=== PATIENT | male | born 1980 | race Two or more races ===

== ENCOUNTER 2022-07-06 13:48 | Emergency (ER) | payer MEDICAID ==
[~2022-07-06] VITALS: Ht 175.3 cm; Wt 115.5 kg
[2022-07-06 13:59] VITALS: BP 125/86
[2022-07-06] MEDS ORDERED: ondansetron/PF 4mg/2ml inj IM ONE (15:45)
[2022-07-06] MEDS ORDERED: ketorolac trometh. 30mg/ml inj. IM ONE (15:45)
[2022-07-06 16:30] LABS: ALANINE AMINOTRANSFERASE 29 U/L (12-78); ALBUMIN 4.6 G/DL (3.4-5.0); ALBUMIN/GLOBULIN RATIO 1.4 (1.1-1.5); ALKALINE PHOSPHATASE 62 IU/L (46-116); ANION GAP 7 (8-16); ASPARTATE AMINO TRANSFERASE 18 U/L (10-37); BILIRUBIN,TOTAL 0.5 MG/DL (0.1-1.0); BLOOD UREA NITROGEN 19 MG/DL (7-18); BUN/CREATININE RATIO 20.2 (5.4-32.0); CALCIUM 9.2 MG/DL (8.5-10.1); CHLORIDE 105 MMOL/L (99-107); CREATININE 0.94 MG/DL (0.60-1.10); GLUCOSE 90 MG/DL (70-104); POTASSIUM 4.2 MMOL/L (3.5-5.1); SODIUM 144 MMOL/L (135-145); TOTAL CARBON DIOXIDE 31.9 MMOL/L (24-32); TOTAL PROTEIN 7.9 G/DL (6.4-8.2); eGFR 89 ML/MIN
[2022-07-06 16:33] LABS: LIPASE 97 U/L (73-393)
[2022-07-06 16:46] LABS: BASOPHILS # (AUTO) 0.1 X10'3 (0-0.2); EOSINOPHILS # (AUTO) 0.3 X10'3 (0-0.9); EOSINOPHILS % (AUTO) 3.3 % (0-6); HEMATOCRIT 40.7 % (42.0-52.0); HEMOGLOBIN 13.5 g/dl (14.0-17.9); LYMPHOCYTES # (AUTO) 3.3 X10'3 (1.1-4.8); LYMPHOCYTES % (AUTO) 35.8 % (21-51); MEAN CORPUSCULAR HEMOGLOBIN 28.2 PG (27.0-31.0); MEAN CORPUSCULAR HGB CONC 33.1 g/dL (33.0-36.5); MEAN CORPUSCULAR VOLUME 85.3 FL (78-98); MEAN PLATELET VOLUME 9.4 FL (7.4-10.4); MONOCYTES # (AUTO) 0.8 X10'3 (0-0.9); MONOCYTES % (AUTO) 8.5 % (2-12); NEUTROPHILS # (AUTO) 4.7 X10'3 (1.8-7.7); NEUTROPHILS % (AUTO) 51.4 % (42-75); PLATELET COUNT 301 X10'3 (140-440); RED BLOOD COUNT 4.77 X10'6 (4.70-6.10); RED CELL DISTRIBUTION WIDTH 14.3 % (11.5-14.5); WHITE BLOOD COUNT 9.2 X10'3 (4.5-11.0)
[2022-07-06] MEDS ORDERED: OMEP20CA16 PO (17:10)
[2022-07-06] MEDS ORDERED: ONDA4TAB12 PO (17:10)
[2022-07-06] MEDS ORDERED: cyclobenzaprine 10mg tablet PO ONE (17:15)
[2022-07-06] MEDS ORDERED: CYCL-394 PO (17:18)
== END 2022-07-06 17:28 | disposition home or self-care (01) ==
LOC: ER 13:49
DX: S39.011A Strain of muscle, fascia and tendon of abdomen, initial encounter (principal); K80.20 Calculus of gallbladder without cholecystitis without obstruction; R10.11 Right upper quadrant pain; R11.10 Vomiting, unspecified; Z79.899 Other long term (current) drug therapy; X58.XXXA Exposure to other specified factors, initial encounter; Y93.89 Activity, other specified; Y92.89 Other specified places as the place of occurrence of the external cause; Y99.8 Other external cause status
CPT/HCPCS: 36415; 71046; 80053; 83690; 84484; 85025; 93005; 96372; 99285; J1885; J2405